=== PATIENT | female | born 1940 | race Caucasian/White ===

== ENCOUNTER 2017-08-28 19:15 | Inpatient (IN) | payer MEDICARE, MEDICAID ==
--- NOTE | 2017-08-28 21:38 | ED Physician Chart ---
ED Chief Complaint/HPI - Patient Information Date Seen:: 08/28/17 Time Seen:: 21:37 Chief Complaint:: Syncope History of Present Illness:: 76 yo female developed one episode of syncope at grocery store. She was with her daughter at that time. The daughter described the patient having clamy skin , weakness of BLE with a transient loss of consciousness. No trauma Allergies:: Allergies Allergy/AdvReac Type Severity Reaction Status Date / Time No Known Allergies Allergy Verified 08/28/17 20:57 Vitals:: Vital Signs - 8 hr 08/28/17 19:45 Temp 97.7 F HR 55 RR 18 BP 231/78 O2 Sat % 96 ED Past Medical History - Past Medical History Past Medical History: HTN, DM, Thyroid disorder, Other (anemia) Social History: Non Smoker, No Alcohol, No Drug Use Surgical History: Cholecystectomy Family Medical History - Family Member Mother History Unknown: Yes ED Septic Shock - <6hrs of presentation: Vital Signs: Vital Signs - 8 hr 08/28/17 19:45 Temp 97.7 F HR 55 RR 18 BP 231/78 O2 Sat % 96
[2017-08-28 22:25] LABS: URINE MICROSCOPIC INDICATED? YES; URINE SOURCE RANDOM
[2017-08-28 22:25] LABS: HEMATOCRIT 35.2 % (41.0-60); MEAN CELL VOLUME 86.4 fl (81-100); MEAN CORPUSCULAR HEMOGLOBIN 29.4 pg (27.0-31.0); MEAN CORPUSCULAR HGB CONC 34.1 pg (28.0-36.0); MEAN PLATELET VOLUME 10.3 fl; PLATELET COUNT 192 Th/cmm (150-400); RED BLOOD COUNT 4.07 Mil/cmm (3.80-5.20); RED CELL DISTRIBUTION WIDTH 13.3 % (11.5-20.0); WHITE BLOOD COUNT 10.6 Th/cmm (4.8-10.8)
[2017-08-28 22:30] LABS: MANUAL DIFF REQUIRED? YES
[2017-08-28 22:37] LABS: URINE BILIRUBIN NEGATIVE (NEGATIVE); URINE BLOOD TRACE (NEGATIVE); URINE GLUCOSE (UA) 250 mg/dL (NEGATIVE); URINE KETONE NEGATIVE (NEGATIVE); URINE LEUKOCYTE ESTERASE MODERATE (NEGATIVE); URINE NITRATE NEGATIVE (NEGATIVE); URINE PROTEIN >=300 mg/dL (NEGATIVE); URINE UROBILINOGEN 0.2 E.U./dL (0.2 - 1.0)
[2017-08-28 22:40] LABS: ALB/GLOB RATIO 1.3 (1.0-1.8); ALBUMIN 3.3 gm/dL (3.7-5.3); ALKALINE PHOSPHATASE 91 U/L (34-104); ANION GAP 11.6 (7.0-16.0); BILIRUBIN,TOTAL 0.9 mg/dL (0.3-1.0); BUN - UREA NITROGEN 39 mg/dL (7-25); CALCIUM SERUM 8.3 mg/dL (8.6-10.3); CARBON DIOXIDE 24.3 mEq/L (21.0-31.0); CHLORIDE 104 mEq/L (98-107); CREATININE - SERUM 1.6 mg/dL (0.6-1.2); GLUCOSE 254 mg/dL (70-105); POTASSIUM SERUM 4.9 mEq/L (3.5-5.1); SGOT 16 U/L (13-39); SGPT/ALT 15 U/L (7-52); SODIUM SERUM 135 mEq/L (136-145); TOTAL PROTEIN,SERUM 5.9 gm/dL (6.0-8.3)
[2017-08-28 22:45] LABS: URINE CLARITY HAZY (CLEAR); URINE COLOR YELLOW
[2017-08-28 22:59] LABS: URINE RBC 0-2 /hpf (0-5); URINE WBC 25-50 /hpf (0-5)
[2017-08-28 23:00] LABS: URINE BACTERIA MODERATE /hpf (NONE SEEN); URINE EPITHELIAL CELLS MANY /lpf (FEW)
[2017-08-29 01:20] LABS: BAND NEUTROPHILE 2 % (0-10); LYMPHOCYTE 8 % (20-50); NEUTROPHILS 89 % (40-80); TOTAL CELLS COUNTED 100
[2017-08-29 01:21] LABS: MONOCYTE 1 % (2-10); PLATELET ESTIMATE ADEQUATE (NORMAL)
[2017-08-29 05:46] LABS: % BASOPHILS 0.9 % (0.0-2.0); % EOSINOPHILS 2.8 % (0.0-5.0); % LYMPHOCYTES 9.8 % (20.0-50.0); % MONOCYTES 5.2 % (2.0-10.0); % NEUTROPHILS 81.3 % (40.0-80.0); BASOPHILE ABSOLUTE 0.1 Th/cumm (0-0.2); EOSINOPHILE ABSOLUTE 0.2 Th/cmm (0.1-0.4); HEMOGLOBIN 10.7 gm/dL (12-16); LYMPHOCYTE ABSOLUTE 0.6 Th/cmm (1.5-3.0); MEAN CELL VOLUME 86.2 fl (81-100); MEAN CORPUSCULAR HEMOGLOBIN 28.8 pg (27.0-31.0); MEAN CORPUSCULAR HGB CONC 33.4 pg (28.0-36.0); MEAN PLATELET VOLUME 10.3 fl; MONOCYTE ABSOLUTE 0.3 Th/cmm (0.3-1.0); PLATELET COUNT 181 Th/cmm (150-400); RED BLOOD COUNT 3.71 Mil/cmm (3.80-5.20); RED CELL DISTRIBUTION WIDTH 13.7 % (11.5-20.0)
[2017-08-29 05:48] LABS: WHITE BLOOD COUNT 6.2 Th/cmm (4.8-10.8)
[2017-08-29 06:16] LABS: BUN - UREA NITROGEN 39 mg/dL (7-25); CALCIUM SERUM 7.9 mg/dL (8.6-10.3); CARBON DIOXIDE 24.4 mEq/L (21.0-31.0); CHLORIDE 106 mEq/L (98-107); CREATININE - SERUM 1.6 mg/dL (0.6-1.2); CREATININE KINASE 26 U/L (30-223); GLUCOSE 224 mg/dL (70-105); POTASSIUM SERUM 4.4 mEq/L (3.5-5.1); SODIUM SERUM 135 mEq/L (136-145)
[2017-08-29 06:42] VITALS: BP 147/63
--- NOTE | 2017-08-29 08:19 | Diagnostic Imaging Report ---
Exam: Portable chest x-ray. HISTORY: Shortness of breath. Findings: Portable summation of chest at 2224 hours reviewed no prior studies available comparison. Bony thorax is intact. Mediastinal structures midline, the heart is enlarged. No acute pulmonic infiltrates or effusions are noted. IMPRESSION: Cardiomegaly no acute disease.
--- NOTE | 2017-08-29 09:36 | Consultation ---
DATE OF CONSULTATION: 08/29/2017 HISTORY OF PRESENT ILLNESS: The patient is a 76-year-old. The patient had a gross history of period. The patient felt kind of weak. The patient felt oozy. She felt like she was going to pass out and weak. She says she as why she knows she did not pass out. She felt weakness in the legs. She is feeling fine at the moment. PAST MEDICAL HISTORY: Diabetes, hypertension, thyroid disorder, and anemia. SOCIAL HISTORY: She does not smoke or drink. PAST SURGICAL HISTORY: Gallbladder. REVIEW OF SYSTEMS: On direct questioning, no marked headache. No neck pain. Speech okay. No chest pain, no shortness of breath. No cough, sputum, hemoptysis and no abdominal pain. MEDICATIONS: As per reconciliation. PHYSICAL EXAMINATION: VITAL SIGNS: Temperature 98.2; blood pressure initially high at 231/78, down to 180/65. Pulse is around 66. NECK: Supple. No bruits. HEART: Sounds S1, S2. LUNGS: Clear. NEUROLOGIC: Awake, alert. Speech is normal. CRANIAL: Pupils react to light. Full eye movement. No nystagmus. No facial weakness. MOTOR: She will lift both arms up. Lifts both legs up. Reflexes: About -1 upper extremities, difficult to get at the knees. Absent ankles. INVESTIGATIONS: I did not see a CT scan or such. We will go ahead and order one. LABORATORY DATA: WBC 6.2, hemoglobin 10.7, platelets normal. Sodium 135, potassium 4.4. BUN 39, creatinine 1.9. Glucose on admission was 254. TSH okay. UA: WBC is 25-50. ASSESSMENT: 1. Syncope. 2. Weakness. 3. Diabetes. 4. Possible neuropathy. 5. Urinary tract infection. 6. Hypertension. 7. Thyroid disorder. PLAN: CT scan of the head, carotid Doppler studies. JOB# [id number]
--- NOTE | 2017-08-29 10:06 | Diagnostic Imaging Report ---
Head CT without intravenous contrast Indication: Altered level of consciousness Comparison: None Technique: Axial images were obtained from the vertex to the skull base without IV contrast. Coronal reconstructions were made. Total DLP: 819, [id number] FINDINGS: Images of the brain obtained without contrast demonstrate no acute hemorrhage. No mass lesions identified. The ventricles and basal cisterns are patent. Atrophy is noted. Mild white matter disease is noted. No evidence of a skull fracture or focal soft tissue swelling. There is mild mucosal thickening in the paranasal sinuses. IMPRESSION: No evidence of acute intracranial hemorrhage. Atrophy. Mild supratentorial white matter disease which is nonspecific and may be due to chronic microvessel ischemia.
--- NOTE | 2017-08-29 12:23 | Diagnostic Imaging Report ---
Carotid ultrasound HISTORY: Syncope COMPARISON: None Technique: Longitudinal and transverse sonographic sector images of the carotid arteries were obtained with doppler analysis. FINDINGS: Exam of the right side demonstrates mild to moderate atherosclerotic vascular disease, greatest within the carotid bulb. The velocity and velocity ratios are within normal limits. Exam of the left side demonstrates mild to moderate generalized atherosclerotic vascular disease. There is mild increased velocity of the left ICA distally at 134 cm/second. Antegrade vertebral artery flow is demonstrated bilaterally. IMPRESSION: Mild to moderate generalized atherosclerotic vascular disease, right greater than left. There is mild increased velocity of the left distal ICA which may be due to technical factors and vessel tortuosity. Otherwise no hemodynamically significant focal stenosis was identified. If necessary CT angiography neck may be obtained.
[2017-08-29] MEDS: Levothyroxine 0.025 Mg Tab PO SCH (13:32)
[2017-08-29 15:43] LABS: A1C % 8.3 % (4.0-6.0)
[2017-08-29] MEDS: Ferrous Sulfate 325 MG TAB PO SCH (17:10)
--- NOTE | 2017-08-29 20:41 | Consultation ---
DATE OF CONSULTATION: 08/29/[address] Alcala. HISTORY AND PHYSICAL: This is a 76-year-old female patient who was at a grocery store when the patient had syncopal episode. The patient had no evidence of seizure activity, chest pain, palpitation prior to syncope and the patient was brought to the Emergency Room and the patient is admitted. PAST MEDICAL HISTORY: Hypertension, anemia, hypothyroid, osteoporosis, obesity. FAMILY HISTORY: Unremarkable. SOCIAL HISTORY: No history of smoking, alcohol abuse. ALLERGIES: No known allergies. PHYSICAL EXAMINATION: VITAL SIGNS: Blood pressure 184/57, pulse 78, respirations 28. HEAD: Normocephalic. No lumps or bumps. EYES: Pupils equal, reactive to light. Fundi show AV nicking, sclerae white, conjunctivae pink. NECK: Carotid 2+. Normal upstroke. JVD flat. Thyroid not palpable. Lymph nodes not palpable. CHEST: Shows increased AP diameter. No kyphosis, scoliosis. LUNGS: Bilateral bronchovesicular breath sounds. HEART: PMI fifth intercostal space with lateral to midclavicular line. S1, S2. No S3, S4. Soft systolic murmur. ABDOMEN: Soft. Liver and spleen not palpable. No organomegaly. Bowel sounds active. NEUROLOGIC: Peripheral neuropathy. EXTREMITIES: Peripheral pulses 2+. No pedal edema. CLINICAL IMPRESSION: Syncope, etiology unknown; diabetes mellitus type 2; diabetic peripheral neuropathy; hypertension, uncontrolled; congestive heart failure; diastolic dysfunction. BNP level 462. Iron-deficiency anemia, hypothyroid, osteoporosis, obesity, urinary tract infection. PLAN: The patient will get carotid duplex study. CT scan of the brain, echocardiogram. Treat urinary tract infection and congestive heart failure. JOB# [id number]
[2017-08-29] MEDS: INSULIN ASPART SLIDING SCALE 100 UNITS/ML UNIT SUBQ SCH (22:21)
[2017-08-30] MEDS: INSULIN ASPART SLIDING SCALE 100 UNITS/ML UNIT SUBQ SCH ×4 (07:35→22:11)
[2017-08-30 07:38] LABS: ANION GAP 9.5 (7.0-16.0); BUN - UREA NITROGEN 37 mg/dL (7-25); CALCIUM SERUM 7.9 mg/dL (8.6-10.3); CARBON DIOXIDE 25.6 mEq/L (21.0-31.0); CHLORIDE 105 mEq/L (98-107); CREATININE - SERUM 1.8 mg/dL (0.6-1.2); POTASSIUM SERUM 4.1 mEq/L (3.5-5.1); SODIUM SERUM 136 mEq/L (136-145)
[2017-08-30 07:48] LABS: GLUCOSE 130 mg/dL (70-105)
[2017-08-30] MEDS: Levothyroxine 0.025 Mg Tab PO SCH (08:54)
[2017-08-30] MEDS: Ferrous Sulfate 325 MG TAB PO SCH ×2 (08:55→17:32)
--- NOTE | 2017-08-30 12:14 | History & Physical ---
ADMIT DATE: 08/30/2017 CHIEF COMPLAINT: Syncopal episode. HISTORY OF PRESENT ILLNESS: This is a 76-year-old lady with history of hypertension, diabetes, anemia who was in her usual state of health until 2 days ago when she was grocery shopping with her daughter, and suddenly felt weak, clammy and her legs felt very wobbly. The patient apparently had a brief loss of consciousness and was held by her daughter and was transferred to the ER where pertinent findings include BUN and creatinine of 39/1.6. UA consistent with a UTI and a blood pressure at 231/78. She was also slightly bradycardic at 55. CT of the head was essentially within normal limits. The patient has been admitted to telemetry for further management and care. On further questioning, the patient denies any chest pain or palpitations prior to the episode. She is diabetic and she thinks it might have been because of her diabetic medications, but her glucometer readings were actually somewhat elevated, around the 200 range area. She states that about a year ago she had a similar episode, but at that time she was not hospitalized. PAST MEDICAL HISTORY: As noted above and hypothyroidism. PAST SURGICAL HISTORY: Cholecystectomy, many years ago. SOCIAL HISTORY: Denies any tobacco, ETOH or illicit drug usage. Lives at home with family. ALLERGIES: NKDA. OUTPATIENT MEDICATIONS: Lisinopril 20 b.i.d., potassium chloride 10 mEq daily, atenolol 25 b.i.d., atorvastatin 40 every day, clonidine 0.2 q. 8 hours, iron sulfate 325 b.i.d., Lasix 20 every day, glipizide 10 b.i.d., hydralazine 25 t.i.d., Synthroid 25 mcg every day, and Glucophage 1000 mg b.i.d. REVIEW OF SYSTEMS: CONSTITUTIONAL: No fever or chills, no recent weight loss. CARDIOVASCULAR: She denies any angina type symptomatology. PULMONARY: No cough, no shortness of breath, no phlegm production. GASTROINTESTINAL: Denies any abdominal pain, nausea, vomiting or diarrhea. GENITOURINARY: The patient denies any UTI symptomatology. No dysuria or hematuria. PHYSICAL EXAMINATION: VITAL SIGNS: Temperature 97.6, pulse 54, BP was 73/59 with sats of 97% on room air. GENERAL: She is a well-developed, mildly obese female, not in acute distress. She is awake, alert and oriented x 3. HEAD AND NECK: Normocephalic and atraumatic. Pupils are reactive to light. Extraocular movements are intact. Oropharynx moist and clear. CARDIAC: Regular rate and rhythm without any murmurs. LUNGS: Decreased, but clear to auscultation bilaterally. ABDOMEN: Soft, supple, nontender, nondistended, normoactive bowel sounds. LOWER EXTREMITIES: No pedal edema. LABORATORY DATA: Troponins have been negative x 4 sets. BNP level 462. Sodium 135, BUN 39, creatinine 1.6 with a glucose of 254. White count 10.6, H and H 12/35 with a platelet count of 192. UA shows moderate leukocyte esterase with 25-50 wbc's and moderate bacteria. Head CT, there is no evidence of intracranial hemorrhage. Chest x-ray shows cardiomegaly with no acute disease. ASSESSMENT: 1. Syncope. Etiologies could include TIA versus CVA. We will also have to rule out Cardiology related event such as a carotid stenosis or arrhythmia as well as IN. 2. Generalized weakness. 3. History of hypertension, out of control. 4. Bradycardia. 5. Urinary tract infection. 6. Renal insufficiency, likely chronic in nature. PLAN: The patient has been admitted to [facility] for further management and care. She will undergo cardiac and neuro workup including a 2D echo, carotid ultrasound. I will also ask for a cardiology as well as a neuro consult. The patient will be placed on aspirin and will be kept on her medications as scheduled except for the atenolol, which will be discontinued secondary to her bradycardia. The patient will be placed on hydralazine and Imdur for better BP control and she will be kept on her other medications as scheduled as noted above. Her Lasix will be discontinued given her renal insufficiency and she will be placed on Rocephin 1 gram every day for UTI. JOB# [id number] NIDA
[2017-08-30] MEDS: cefTRIAXone 1 GM in Sodium Chloride 0.9% 50 ML IV SCH (15:05)
--- NOTE | 2017-08-30 16:17 | Cardiology ---
08/29/2017 PATIENT OF: Dr. Alcala. M-MODE ECHOCARDIOGRAM: Mitral valve: Anterior leaflet of the mitral valve shows normal excursion, EF velocity. Posterior leaflet of the mitral valve shows normal excursion. Left ventricular posterior wall shows increased thickness, normal excursion. Interventricular septum shows increased thickness, normal excursion, hypertrophy of the left ventricle, ejection fraction 55%. Left atrium normal. Aortic root shows normal dimension, normal excursion of aortic leaflets. CONCLUSION: Hypertrophy of the left ventricle, ejection fraction 60%. 2D ECHO: Long axis view showed normal sized left ventricle with hypertrophy of the left ventricle. Left atrium normal. Aortic root shows normal dimension, normal excursion of aortic leaflets. Short axis view of mitral valve normal. Short axis view of aortic valve normal. Apical four-chamber view showed normal sized left ventricle, left atrium, right ventricle, right atrium, tricuspid and mitral valve. Ejection fraction 60%. CONCLUSION: Hypertrophy of the left ventricle, ejection fraction 60%. Doppler study shows mild mitral regurgitation, mild tricuspid regurgitation. JOB# [id number]
[2017-08-31 06:32] LABS: % BASOPHILS 0.5 % (0.0-2.0); % EOSINOPHILS 3.6 % (0.0-5.0); % LYMPHOCYTES 17.2 % (20.0-50.0); % MONOCYTES 6.9 % (2.0-10.0); % NEUTROPHILS 71.8 % (40.0-80.0); EOSINOPHILE ABSOLUTE 0.2 Th/cmm (0.1-0.4); HEMATOCRIT 33.3 % (41.0-60); HEMOGLOBIN 11.2 gm/dL (12-16); LYMPHOCYTE ABSOLUTE 0.9 Th/cmm (1.5-3.0); MEAN CELL VOLUME 85.5 fl (81-100); MEAN CORPUSCULAR HEMOGLOBIN 28.8 pg (27.0-31.0); MEAN CORPUSCULAR HGB CONC 33.7 pg (28.0-36.0); MEAN PLATELET VOLUME 10.1 fl; MONOCYTE ABSOLUTE 0.4 Th/cmm (0.3-1.0); PLATELET COUNT 173 Th/cmm (150-400); RED CELL DISTRIBUTION WIDTH 13.1 % (11.5-20.0); WHITE BLOOD COUNT 5.5 Th/cmm (4.8-10.8)
[2017-08-31 06:47] LABS: CHOLESTEROL 194 mg/dL (<200); HDL -HIGH DENSITY LIPOPROTEIN 41 mg/dL (23-92); TRIGLYCERIDES 234 mg/dL (<150)
[2017-08-31 06:48] LABS: ANION GAP 10.3 (7.0-16.0); BUN - UREA NITROGEN 40 mg/dL (7-25); CALCIUM SERUM 8.3 mg/dL (8.6-10.3); CARBON DIOXIDE 23.8 mEq/L (21.0-31.0); CHLORIDE 105 mEq/L (98-107); CREATININE - SERUM 1.8 mg/dL (0.6-1.2); GLUCOSE 125 mg/dL (70-105); MAGNESIUM 1.9 mg/dL (1.9-2.7); POTASSIUM SERUM 4.1 mEq/L (3.5-5.1); SODIUM SERUM 135 mEq/L (136-145)
--- NOTE | 2017-08-31 07:44 | General Progress Note ---
Subjective - Review of Systems Service Date: 08/31/17 Events since last encounter: consult dictated CT head negative doppler carotid no hemodynamic stenosis bradycardia suggest ASAS, CTA if BUN/creatinine improves Objective - Results Result Diagrams: 08/31/17 06:20 08/31/17 06:20 Recent Labs: Laboratory Last Values WBC 5.5 Th/cmm (4.8-10.8) 08/31/17 06:20 RBC 3.90 Mil/cmm (3.80-5.20) 08/31/17 06:20 Hgb 11.2 gm/dL (12-16) L 08/31/17 06:20 Hct 33.3 % (41.0-60) L 08/31/17 06:20 MCV 85.5 fl (81-100) 08/31/17 06:20 MCH 28.8 pg (27.0-31.0) 08/31/17 06:20 MCHC Differential 33.7 pg (28.0-36.0) 08/31/17 06:20 RDW 13.1 % (11.5-20.0) 08/31/17 06:20 Plt Count 173 Th/cmm (150-400) 08/31/17 06:20 MPV 10.1 fl 08/31/17 06:20 Neutrophils % 71.8 % (40.0-80.0) 08/31/17 06:20 Band Neutrophils % 2 % (0-10) 08/28/17 22:09 Lymphocytes % 17.2 % (20.0-50.0) L 08/31/17 06:20 Monocytes % 6.9 % (2.0-10.0) 08/31/17 06:20 Eosinophils % 3.6 % (0.0-5.0) 08/31/17 06:20 Basophils % 0.5 % (0.0-2.0) 08/31/17 06:20 Neutrophils (Manual) 89 % (40-80) H 08/28/17 22:09 Lymphocytes 8 % (20-50) L 08/28/17 22:09 Monocytes 1 % (2-10) L 08/28/17 22:09 Platelet Estimate ADEQUATE (NORMAL) 08/28/17 22:09 Sodium 135 mEq/L (136-145) L 08/31/17 06:20 Potassium 4.1 mEq/L (3.5-5.1) 08/31/17 06:20 Chloride 105 mEq/L (98-107) 08/31/17 06:20 Carbon Dioxide 23.8 mEq/L (21.0-31.0) 08/31/17 06:20 Anion Gap 10.3 (7.0-16.0) 08/31/17 06:20 BUN 40 mg/dL (7-25) H 08/31/17 06:20 Creatinine 1.8 mg/dL (0.6-1.2) H 08/31/17 06:20 Est GFR ( Amer) TNP 08/31/17 06:20 Est GFR (Non-Af Amer) TNP 08/31/17 06:20 BUN/Creatinine Ratio 22.2 08/31/17 06:20 Glucose 125 mg/dL (70-105) H 08/31/17 06:20 POC Glucose 121 MG/DL (70 - 105) H 08/31/17 06:12 Hemoglobin A1c % 8.3 % (4.0-6.0) H 08/28/17 22:09 Calcium 8.3 mg/dL (8.6-10.3) L 08/31/17 06:20 Magnesium 1.9 mg/dL (1.9-2.7) 08/31/17 06:20 Total Bilirubin 0.9 mg/dL (0.3-1.0) 08/28/17 22:09 AST 16 U/L (13-39) 08/28/17 22:09 ALT 15 U/L (7-52) 08/28/17 22:09 Alkaline Phosphatase 91 U/L (34-104) 08/28/17 22:09 Creatine Kinase 27 U/L (30-223) L 08/29/17 22:25 Troponin I 0.02 ng/mL (0.01-0.05) 08/29/17 22:25 B-Natriuretic Peptide 319.0 pg/mL (5.0-100.0) H 08/30/17 04:50 Total Protein 5.9 gm/dL (6.0-8.3) L 08/28/17 22:09 Albumin 3.3 gm/dL (3.7-5.3) L 08/28/17 22:09 Globulin 2.6 gm/dL 08/28/17 22:09 Albumin/Globulin Ratio 1.3 (1.0-1.8) 08/28/17 22:09 Triglycerides 234 mg/dL (<150) H 08/31/17 06:20 Cholesterol 194 mg/dL (<200) 08/31/17 06:20 LDL Cholesterol Direct 115 mg/dL (75-193) 08/31/17 06:20 HDL Cholesterol 41 mg/dL (23-92) 08/31/17 06:20 TSH 4.49 uIU/ml (0.34-5.60) 08/28/17 22:09 Urine Source RANDOM 08/28/17 21:40 Urine Color YELLOW 08/28/17 21:40 Urine Clarity HAZY (CLEAR) 08/28/17 21:40 Urine pH 6.0 (4.6 - 8.0) 08/28/17 21:40 Ur Specific Stryker 1.020 (1.005-1.030) 08/28/17 21:40 Urine Protein >=300 mg/dL (NEGATIVE) 08/28/17 21:40 Urine Glucose (UA) 250 mg/dL (NEGATIVE) H 08/28/17 21:40 Urine Ketones NEGATIVE mg/dL (NEGATIVE) 08/28/17 21:40 Urine Blood TRACE (NEGATIVE) 08/28/17 21:40 Urine Nitrate NEGATIVE (NEGATIVE) 08/28/17 21:40 Urine Bilirubin NEGATIVE (NEGATIVE) 08/28/17 21:40 Urine Urobilinogen 0.2 E.U./dL (0.2 - 1.0) 08/28/17 21:40 Ur Leukocyte Esterase MODERATE (NEGATIVE) H 08/28/17 21:40 Urine RBC 0-2 /hpf (0-5) 08/28/17 21:40 Urine WBC 25-50 /hpf (0-5) H 08/28/17 21:40 Ur Epithelial Cells MANY /lpf (FEW) 08/28/17 21:40 Urine Bacteria MODERATE /hpf (NONE SEEN) H 08/28/17 21:40 - Physical Exam Vitals and I&O: Vital Signs Temp 98 F 08/31/17 04:00 Pulse 72 08/31/17 04:00 Resp 18 08/31/17 04:00 BP 128/65 08/31/17 04:00 Pulse Ox 96 08/31/17 04:00 Intake & Output 08/30/17 08/31/17 08/31/17 18:59 06:59 18:59 Intake Total 50 50 Balance 50 50 Weight (lbs) 81.919 kg Intake: Intake, IV Amount 50 [id number] 1 gm In 50 Sodium Chloride 0.9% 50 ml @ 100 mls/hr IV Q24HR [facility] Rx#:[id number] Oral 50 Other: # Voids 1 Stool Characteristics Soft Active Medications: Current Medications Acetaminophen (Tylenol) 650 mg PO Q4H PRN PRN Reason: Pain or Fever >101 Stop: 10/27/17 23:14 Amlodipine Besylate (Norvasc) 10 mg PO DAILY [facility] Stop: 10/30/17 08:59 Atorvastatin Calcium (Lipitor) 40 mg PO DAILY [facility] Stop: 10/28/17 13:59 Last Admin: 08/30/17 08:55 Dose: 40 mg Ferrous Sulfate (Iron) 325 mg PO BID YASHIRA Stop: 10/28/17 16:59 Last Admin: 08/30/17 17:32 Dose: 325 mg Furosemide (Lasix) 40 mg IVP DAILY YASHIRA Stop: 10/29/17 08:59 Last Admin: 08/30/17 08:57 Dose: 40 mg Glipizide (Glucotrol) 10 mg PO BID [facility] Stop: 10/28/17 16:59 Last Admin: 08/30/17 17:32 Dose: Not Given Hydralazine HCl (Apresoline) 50 mg PO QID [facility] Stop: 10/29/17 13:44 Last Admin: 08/30/17 17:36 Dose: 50 mg Ceftriaxone Sodium 1 gm/ (Sodium Chloride) 50 mls @ 100 mls/hr IV Q24HR YASHIAR Stop: 10/29/17 10:29 Last Infusion: 08/30/17 15:50 Dose: Infused Insulin Aspart (Novolog Insulin Sliding Scale) 0 units SUBQ ACHS YASHIRA PRN Reason: Protocol Stop: 10/28/17 20:59 Last Admin: 08/30/17 22:11 Dose: Not Given Levothyroxine Sodium (Synthroid) 0.025 mg PO QDAC YASHIRA Stop: 10/28/17 13:59 Last Admin: 08/30/17 08:54 Dose: 0.025 mg Losartan Potassium (Cozaar) 100 mg PO DAILY [facility] Stop: 10/30/17 08:59 Miscellaneous (Clinical Monitoring) 1 ea MC DAILY PRN PRN Reason: RENAL- METFORMIN Stop: 10/28/17 15:03 Pneumococcal Polyvalent Vaccine (Pneumovax) 0.5 ml IM .ONCE ONE Stop: 08/31/17 09:01 Nutritional Asmnt/Malnutr-PDOC - Dietary Evaluation Malnutrition Findings (Please click <Entered> for more info): Nutritional Asmnt/Malnutrition Start: 08/29/17 16: 58 Text: Status: Complete Freq: Document 08/29/17 17:19 LCHENG (Rec: 08/29/17 17:28 LCHENG [email or web address]) Nutritional Asmnt/Malnutrition Patient General Information Nutritional Screening High Risk Consult Diagnosis syncope, uncontroleed HTN Pertinent Medical Hx/Surgical Hx HTN, DM, thyroid disorder, anemia, cholestectomy Subjective Information Consult received for DM. Pt seen lying in bed, awake and alert during the time of visit . Pt reported good appetite, food tatsed good. She followed diebetic diet and monitor blood sugar at home. Per notes , PO intake 100% of breakfast and lunch today. Current Diet Order/ Nutrition Support low sodium 2gm Pertinent Medications Iron, lasix, glucotrol, synthroid, glucophage Pertinent Labs 1/3 Na 135, K 4.4, cl 106, BUN 39, Cr 1.6, Glucose 224 1/2 A1c 8.3, Ca 7.9 Nutritional Hx/Data Height 1.63 m Height (Calculated Centimeters) 162.6 Current Weight (lbs) 78.653 kg Weight (Calculated Kilograms) 78.7 Weight (Calculated Grams) 94643.9 Kunkle Body Weight 120 % Kunkle Body Weight 145 Body Mass Index (BMI) 29.7 Weight Status Overweight GI Symptoms GI Symptoms None Last BM no record Difficult in: None Usual diet at home pt was following diabetic diet at home Skin Integrity/Comment: intact Estimated Nutritional Goals BEE in Kcals: Adj wt of IBW Calories/Kcals/Kg 25-30 Kcals Calculated [id number] based on adj wt 61 Protein: Adj wt of IBW Protein g/k-1.2 Protein Calculated 61-73 Fluid: ml 1525-1830ml (1ml/kcal) Nutritional Problem 1. Problem Problem altered nutrition realted lab values Etiology hx of Dm Signs/Symptoms: Glucose 224, A1c 8.3 Malnutrition Alert Protein-Calorie Malnutrition N/A Is there a minimum of two criteria No selected? Query Text:Check all the applicable criteria. A minimum of two criteria are recommended for diagnosis of either severe or non-severe malnutrition. Intervention/Recommendation Comments 1. [facility] diet for optimal glycemic control. RN made aware and will update diet order. 2. Monitor PO intake, wt, labs and skin integrity 3. F/U as moderate risk in 3-5 days, 09/01-09/03 Expected Outcomes/Goals Expected Outcomes/Goals 1. PO intake to meet at least 75% of nutritional needs. 2. Wt stability, skin to remain intact, labs to improve .
[2017-08-31] MEDS: Levothyroxine 0.025 Mg Tab PO SCH (07:54)
--- NOTE | 2017-08-31 08:06 | Consultation ---
DATE OF CONSULTATION: 08/31/2017 VASCULAR CONSULTATION REFERRING PHYSICIAN: Dr. Alcala. REASON FOR CONSULTATION: Loss of consciousness. Thank you for referring this patient to me. HISTORY OF PRESENT ILLNESS: This is a 76-year-old female who apparently briefly lost consciousness, became weak, and was admitted to the hospital via Emergency Room. The patient has diabetes and claims that this is low blood sugars, likely the reason for it. Her blood sugar was not low; however, but the blood pressure was high at 231/78. She was found to be slightly bradycardic at 55. She denies previous history of syncopal episode, TIA, or stroke. The laboratory studies include a blood sugar on admission at 130, BUN is 37 with creatinine of 1.8. CBC was normal. The patient underwent a carotid study and this shows no hemodynamic significant stenosis. CT of the head did not show any acute infarct. The patient has been seen by Dr. Shaikh, Neurology and Dr. Brenda Fountain, Cardiology. PHYSICAL EXAMINATION: NEUROLOGY: The patient appears to be well oriented. There is minimal carotid bruit bilateral. The patient moves all extremities. No evidence of weakness. IMPRESSION: 1. Transient ischemic attack ? 2. No hemodynamic carotid stenosis. 3. Bradycardia. RECOMMENDATIONS: In view of the elevated BUN and creatinine, the patient should be observed with a followup of these measurements and if episode repeats itself. A CT angiogram should be done. There are other etiologies that needs to be considered including bradycardia and a low blood sugar. Thank you for this consultation. We will follow with you. JOB# [id number]
[2017-08-31] MEDS: INSULIN ASPART SLIDING SCALE 100 UNITS/ML UNIT SUBQ SCH ×4 (08:08→21:11)
[2017-08-31] MEDS: Ferrous Sulfate 325 MG TAB PO SCH ×2 (08:33→17:03)
[2017-08-31] MEDS ORDERED: Pneumococcal Vaccine 0.5 mL Vial IM ONE (09:00)
--- NOTE | 2017-08-31 09:14 | Diagnostic Imaging Report ---
Portable chest x-ray HISTORY: Shortness of breath The heart is enlarged. Atherosclerotic calcification seen in the aorta. No acute focal pulmonary processes. IMPRESSION: 1. Cardiomegaly with atherosclerotic vascular changes 2. No acute abnormalities
[2017-08-31] MEDS: cefTRIAXone 1 GM in Sodium Chloride 0.9% 50 ML IV SCH (10:26)
[2017-08-31] MEDS ORDERED: Probiotic Screen MC PRN (15:57)
[2017-09-01] MEDS: INSULIN ASPART SLIDING SCALE 100 UNITS/ML UNIT SUBQ SCH ×5 (06:44→21:44)
[2017-09-01] MEDS: Levothyroxine 0.025 Mg Tab PO SCH (06:45)
[2017-09-01 07:29] LABS: % EOSINOPHILS 1.7 % (0.0-5.0); % LYMPHOCYTES 10.8 % (20.0-50.0); % NEUTROPHILS 82.5 % (40.0-80.0); EOSINOPHILE ABSOLUTE 0.1 Th/cmm (0.1-0.4); HEMATOCRIT 34.1 % (41.0-60); HEMOGLOBIN 11.4 gm/dL (12-16); LYMPHOCYTE ABSOLUTE 0.9 Th/cmm (1.5-3.0); MEAN CELL VOLUME 86.5 fl (81-100); MEAN CORPUSCULAR HEMOGLOBIN 28.8 pg (27.0-31.0); MEAN CORPUSCULAR HGB CONC 33.3 pg (28.0-36.0); MONOCYTE ABSOLUTE 0.4 Th/cmm (0.3-1.0); NEUTROPHILE ABSOLUTE 6.9 Th/cmm (1.8-8.0); PLATELET COUNT 165 Th/cmm (150-400); RED BLOOD COUNT 3.95 Mil/cmm (3.80-5.20); RED CELL DISTRIBUTION WIDTH 13.4 % (11.5-20.0)
[2017-09-01 07:54] LABS: ANION GAP 13.4 (7.0-16.0); BUN - UREA NITROGEN 38 mg/dL (7-25); CALCIUM SERUM 8.5 mg/dL (8.6-10.3); CARBON DIOXIDE 23.4 mEq/L (21.0-31.0); CHLORIDE 105 mEq/L (98-107); GLUCOSE 143 mg/dL (70-105); POTASSIUM SERUM 3.8 mEq/L (3.5-5.1); SODIUM SERUM 138 mEq/L (136-145)
[2017-09-01 08:08] LABS: WHITE BLOOD COUNT 8.3 Th/cmm (4.8-10.8)
[2017-09-01] MEDS: Lactobacillus Rhamnosus GG 15 Billion CFU CAP.SPRINK PO SCH (09:07)
[2017-09-01] MEDS: Ferrous Sulfate 325 MG TAB PO SCH ×2 (09:10→17:19)
[2017-09-01] MEDS: cefTRIAXone 1 GM in Sodium Chloride 0.9% 50 ML IV SCH (10:30)
--- NOTE | 2017-09-01 23:50 | Progress Notes ---
DATE: 09/01/2017 SUBJECTIVE: The patient is lying in bed, awake. She does feel better. Still kind of weak, but not as much. The patient talking better. Got up. She says she feels stronger a little bit. Dizziness less. OBJECTIVE: VITAL SIGNS: Temperature 98.4; blood pressure is better now, 147/72; pulse is 90. NECK: Supple. No neck bruits. CARDIAC: Heart sounds S1 and S2. NEUROLOGICAL: The patient is awake. She will answer questions. EXTREMITIES: Upper extremity normal 4+, lower extremity 4+. INVESTIGATIONS: CT scan of the head. Really no acute process. May be old stroke. Carotid Doppler: No significant stenosis. ASSESSMENT: 1. Syncope. 2. Weakness getting better. 3. Diabetes. 4. Neuropathy. 5. Urinary tract infection. 6. Hypertension. 7. Thyroid disorder. PLAN: Continue present treatment. Continue ambulation and physical therapy. JOB# [id number]
[2017-09-02 06:12] LABS: % EOSINOPHILS 1.7 % (0.0-5.0); % LYMPHOCYTES 13.7 % (20.0-50.0); % MONOCYTES 10.8 % (2.0-10.0); % NEUTROPHILS 73.8 % (40.0-80.0); EOSINOPHILE ABSOLUTE 0.1 Th/cmm (0.1-0.4); HEMATOCRIT 31.1 % (41.0-60); HEMOGLOBIN 10.6 gm/dL (12-16); LYMPHOCYTE ABSOLUTE 0.7 Th/cmm (1.5-3.0); MEAN CELL VOLUME 86.2 fl (81-100); MEAN CORPUSCULAR HEMOGLOBIN 29.3 pg (27.0-31.0); MEAN CORPUSCULAR HGB CONC 33.9 pg (28.0-36.0); MEAN PLATELET VOLUME 10.5 fl; MONOCYTE ABSOLUTE 0.5 Th/cmm (0.3-1.0); NEUTROPHILE ABSOLUTE 3.7 Th/cmm (1.8-8.0); PLATELET COUNT 163 Th/cmm (150-400); RED BLOOD COUNT 3.61 Mil/cmm (3.80-5.20); RED CELL DISTRIBUTION WIDTH 13.4 % (11.5-20.0)
[2017-09-02] MEDS: Levothyroxine 0.025 Mg Tab PO SCH (06:45)
[2017-09-02 06:50] LABS: ANION GAP 12.2 (7.0-16.0); BUN - UREA NITROGEN 35 mg/dL (7-25); CALCIUM SERUM 8.2 mg/dL (8.6-10.3); CARBON DIOXIDE 24.7 mEq/L (21.0-31.0); CHLORIDE 103 mEq/L (98-107); GLUCOSE 94 mg/dL (70-105); MAGNESIUM 2.1 mg/dL (1.9-2.7); POTASSIUM SERUM 3.9 mEq/L (3.5-5.1); SODIUM SERUM 136 mEq/L (136-145)
[2017-09-02] MEDS: Ferrous Sulfate 325 MG TAB PO SCH (08:53)
[2017-09-02] MEDS: Lactobacillus Rhamnosus GG 15 Billion CFU CAP.SPRINK PO SCH (08:54)
[2017-09-02] MEDS: INSULIN ASPART SLIDING SCALE 100 UNITS/ML UNIT SUBQ SCH ×2 (08:55→12:47)
--- NOTE | 2017-09-02 09:54 | General Progress Note ---
Subjective - Review of Systems Service Date: 09/02/17 Events since last encounter: alert, oriented need to check carotid doppler q 6 months for progression of stenosis Objective - Results Result Diagrams: 09/02/17 04:50 09/02/17 04:50 Recent Labs: Laboratory Last Values WBC 5.0 Th/cmm (4.8-10.8) D 09/02/17 04:50 RBC 3.61 Mil/cmm (3.80-5.20) L 09/02/17 04:50 Hgb 10.6 gm/dL (12-16) L 09/02/17 04:50 Hct 31.1 % (41.0-60) L 09/02/17 04:50 MCV 86.2 fl (81-100) 09/02/17 04:50 MCH 29.3 pg (27.0-31.0) 09/02/17 04:50 MCHC Differential 33.9 pg (28.0-36.0) 09/02/17 04:50 RDW 13.4 % (11.5-20.0) 09/02/17 04:50 Plt Count 163 Th/cmm (150-400) 09/02/17 04:50 MPV 10.5 fl 09/02/17 04:50 Neutrophils % 73.8 % (40.0-80.0) 09/02/17 04:50 Band Neutrophils % 2 % (0-10) 08/28/17 22:09 Lymphocytes % 13.7 % (20.0-50.0) L 09/02/17 04:50 Monocytes % 10.8 % (2.0-10.0) H 09/02/17 04:50 Eosinophils % 1.7 % (0.0-5.0) 09/02/17 04:50 Basophils % 0.0 % (0.0-2.0) 09/02/17 04:50 Neutrophils (Manual) 89 % (40-80) H 08/28/17 22:09 Lymphocytes 8 % (20-50) L 08/28/17 22:09 Monocytes 1 % (2-10) L 08/28/17 22:09 Platelet Estimate ADEQUATE (NORMAL) 08/28/17 22:09 Sodium 136 mEq/L (136-145) 09/02/17 04:50 Potassium 3.9 mEq/L (3.5-5.1) 09/02/17 04:50 Chloride 103 mEq/L (98-107) 09/02/17 04:50 Carbon Dioxide 24.7 mEq/L (21.0-31.0) 09/02/17 04:50 Anion Gap 12.2 (7.0-16.0) 09/02/17 04:50 BUN 35 mg/dL (7-25) H 09/02/17 04:50 Creatinine 2.0 mg/dL (0.6-1.2) H 09/02/17 04:50 Est GFR ( Amer) TNP 09/02/17 04:50 Est GFR (Non-Af Amer) TNP 09/02/17 04:50 BUN/Creatinine Ratio 17.5 09/02/17 04:50 Glucose 94 mg/dL (70-105) 09/02/17 04:50 POC Glucose 81 MG/DL (70 - 105) 09/02/17 06:46 Hemoglobin A1c % 8.3 % (4.0-6.0) H 08/28/17 22:09 Calcium 8.2 mg/dL (8.6-10.3) L 09/02/17 04:50 Magnesium 2.1 mg/dL (1.9-2.7) 09/02/17 04:50 Total Bilirubin 0.9 mg/dL (0.3-1.0) 08/28/17 22:09 AST 16 U/L (13-39) 08/28/17 22:09 ALT 15 U/L (7-52) 08/28/17 22:09 Alkaline Phosphatase 91 U/L (34-104) 08/28/17 22:09 Creatine Kinase 27 U/L (30-223) L 08/29/17 22:25 Troponin I 0.02 ng/mL (0.01-0.05) 08/29/17 22:25 B-Natriuretic Peptide 196.0 pg/mL (5.0-100.0) H 08/31/17 06:20 Total Protein 5.9 gm/dL (6.0-8.3) L 08/28/17 22:09 Albumin 3.3 gm/dL (3.7-5.3) L 08/28/17 22:09 Globulin 2.6 gm/dL 08/28/17 22:09 Albumin/Globulin Ratio 1.3 (1.0-1.8) 08/28/17 22:09 Triglycerides 234 mg/dL (<150) H 08/31/17 06:20 Cholesterol 194 mg/dL (<200) 08/31/17 06:20 LDL Cholesterol Direct 115 mg/dL (75-193) 08/31/17 06:20 HDL Cholesterol 41 mg/dL (23-92) 08/31/17 06:20 TSH 4.44 uIU/ml (0.34-5.60) 08/31/17 06:20 Urine Source RANDOM 08/28/17 21:40 Urine Color YELLOW 08/28/17 21:40 Urine Clarity HAZY (CLEAR) 08/28/17 21:40 Urine pH 6.0 (4.6 - 8.0) 08/28/17 21:40 Ur Specific [place] 1.020 (1.005-1.030) 08/28/17 21:40 Urine Protein >=300 mg/dL (NEGATIVE) 08/28/17 21:40 Urine Glucose (UA) 250 mg/dL (NEGATIVE) H 08/28/17 21:40 Urine Ketones NEGATIVE mg/dL (NEGATIVE) 08/28/17 21:40 Urine Blood TRACE (NEGATIVE) 08/28/17 21:40 Urine Nitrate NEGATIVE (NEGATIVE) 08/28/17 21:40 Urine Bilirubin NEGATIVE (NEGATIVE) 08/28/17 21:40 Urine Urobilinogen 0.2 E.U./dL (0.2 - 1.0) 08/28/17 21:40 Ur Leukocyte Esterase MODERATE (NEGATIVE) H 08/28/17 21:40 Urine RBC 0-2 /hpf (0-5) 08/28/17 21:40 Urine WBC 25-50 /hpf (0-5) H 08/28/17 21:40 Ur Epithelial Cells MANY /lpf (FEW) 08/28/17 21:40 Urine Bacteria MODERATE /hpf (NONE SEEN) H 08/28/17 21:40 - Physical Exam Vitals and I&O: Vital Signs Temp 99.3 F 09/02/17 04:00 Pulse 99 09/02/17 08:54 Resp 18 09/02/17 04:00 BP 136/78 09/02/17 08:54 Pulse Ox 93 09/02/17 04:00 Intake & Output 09/01/17 09/02/17 09/02/17 18:59 06:59 18:59 Intake Total 50 Balance 50 Weight (lbs) 81.193 kg Intake: Intake, IV Amount 50 cefTRIAXone 1 gm In 50 Sodium Chloride 0.9% 50 ml @ 100 mls/hr IV Q24HR [facility] Rx#:[id number] Active Medications: Current Medications Acetaminophen (Tylenol) 650 mg PO Q4H PRN PRN Reason: Pain or Fever >101 Stop: 10/27/17 23:14 Amlodipine Besylate (Norvasc) 10 mg PO DAILY [facility] Stop: 10/30/17 08:59 Last Admin: 09/02/17 08:54 Dose: 10 mg Aspirin (Ecotrin) 81 mg PO DAILY [facility] Stop: 10/30/17 10:44 Last Admin: 09/02/17 08:55 Dose: 81 mg Atorvastatin Calcium (Lipitor) 40 mg PO DAILY [facility] Stop: 10/28/17 13:59 Last Admin: 09/02/17 08:54 Dose: 40 mg Benzocaine/Menthol (Cepacol) 1 rosa MM Q4HR PRN PRN Reason: Sore Throat Stop: 10/31/17 11:55 Last Admin: 09/02/17 06:57 Dose: 1 rosa Bisacodyl (Dulcolax 5 Mg Ec Tab) 5 mg PO DAILY PRN PRN Reason: Constipation Stop: 10/31/17 11:53 Clopidogrel Bisulfate (Plavix) 75 mg PO DAILY [facility] Stop: 10/30/17 10:44 Last Admin: 09/02/17 08:54 Dose: 75 mg Ferrous Sulfate (Iron) 325 mg PO BID [facility] Stop: 10/28/17 16:59 Last Admin: 09/02/17 08:53 Dose: 325 mg Glipizide (Glucotrol) 10 mg PO BID [facility] Stop: 10/28/17 16:59 Last Admin: 09/02/17 08:53 Dose: 10 mg Hydralazine HCl (Apresoline) 50 mg PO QID [facility] Stop: 10/29/17 13:44 Last Admin: 09/02/17 08:53 Dose: 50 mg Ceftriaxone Sodium 1 gm/ (Sodium Chloride) 50 mls @ 100 mls/hr IV Q24HR [facility] Stop: 10/29/17 10:29 Last Infusion: 09/01/17 12:40 Dose: Infused Insulin Aspart (Novolog Insulin Sliding Scale) 0 units SUBQ ACHS YASHIRA PRN Reason: Protocol Stop: 10/28/17 20:59 Last Admin: 09/02/17 08:55 Dose: Not Given Isosorbide Mononitrate (Imdur) 30 mg PO DAILY [facility] Stop: 10/30/17 10:44 Last Admin: 09/02/17 08:54 Dose: 30 mg Lactobacillus Rhamnosus (Culturelle 15b) 1 each PO DAILY [facility] Stop: 10/31/17 08:59 Last Admin: 09/02/17 08:54 Dose: 1 each Levothyroxine Sodium (Synthroid) 0.025 mg PO QDAC [facility] Stop: 10/28/17 13:59 Last Admin: 09/02/17 06:45 Dose: 0.025 mg Losartan Potassium (Cozaar) 100 mg PO DAILY [facility] Stop: 10/30/17 08:59 Last Admin: 09/02/17 08:53 Dose: 100 mg Miscellaneous (Clinical Monitoring) 1 ea MC DAILY PRN PRN Reason: RENAL- METFORMIN Stop: 10/28/17 15:03 Miscellaneous (Probiotic Screen) 1 ea PRN PRN PRN Reason: PROTOCOL Stop: 10/30/17 15:56 Pioglitazone HCl (Actos) 30 mg PO DAILY [facility] Stop: 10/31/17 11:59 Last Admin: 09/02/17 08:55 Dose: 30 mg Nutritional Asmnt/Malnutr-PDOC - Dietary Evaluation Malnutrition Findings (Please click <Entered> for more info): Nutritional Asmnt/Malnutrition Start: 08/29/17 16: 58 Text: Status: Complete Freq: Document 08/29/17 17:19 LCHENG (Rec: 08/29/17 17:28 LCHENG [id number]) Nutritional Asmnt/Malnutrition Patient General Information Nutritional Screening High Risk Consult Diagnosis syncope, uncontroleed HTN Pertinent Medical Hx/Surgical Hx HTN, DM, thyroid disorder, anemia, cholestectomy Subjective Information Consult received for DM. Pt seen lying in bed, awake and alert during the time of visit . Pt reported good appetite, food tatsed good. She followed diebetic diet and monitor blood sugar at home. Per notes , PO intake 100% of breakfast and lunch today. Current Diet Order/ Nutrition Support low sodium 2gm Pertinent Medications Iron, lasix, glucotrol, synthroid, glucophage Pertinent Labs 1/3 Na 135, K 4.4, cl 106, BUN 39, Cr 1.6, Glucose 224 1/2 A1c 8.3, Ca 7.9 Nutritional Hx/Data Height 1.63 m Height (Calculated Centimeters) 162.6 Current Weight (lbs) 78.653 kg Weight (Calculated Kilograms) 78.7 Weight (Calculated Grams) 51302.9 [place] Body Weight 120 % [place] Body Weight 145 Body Mass Index (BMI) 29.7 Weight Status Overweight GI Symptoms GI Symptoms None Last BM no record Difficult in: None Usual diet at home pt was following diabetic diet at home Skin Integrity/Comment: intact Estimated Nutritional Goals BEE in Kcals: Adj wt of IBW Calories/Kcals/Kg 25-30 Kcals Calculated [id number] based on adj wt 61 Protein: Adj wt of IBW Protein g/k-1.2 Protein Calculated 61-73 Fluid: ml 1525-1830ml (1ml/kcal) Nutritional Problem 1. Problem Problem altered nutrition realted lab values Etiology hx of Dm Signs/Symptoms: Glucose 224, A1c 8.3 Malnutrition Alert Protein-Calorie Malnutrition N/A Is there a minimum of two criteria No selected? Query Text:Check all the applicable criteria. A minimum of two criteria are recommended for diagnosis of either severe or non-severe malnutrition. Intervention/Recommendation Comments 1. Recommend [facility] low sodium diet for optimal glycemic control. RN made aware and will update diet order. 2. Monitor PO intake, wt, labs and skin integrity 3. F/U as moderate risk in 3-5 days, 09/01-09/03 Expected Outcomes/Goals Expected Outcomes/Goals 1. PO intake to meet at least 75% of nutritional needs. 2. Wt stability, skin to remain intact, labs to improve .
[2017-09-02] MEDS: cefTRIAXone 1 GM in Sodium Chloride 0.9% 50 ML IV SCH (10:54)
--- NOTE | 2017-09-02 15:27 | Discharge Summary ---
DATE OF DISCHARGE: 09/02/2017 ADMITTING DIAGNOSES: 1. Syncope. 2. Hypertension, out of control. 3. Bradycardia. 4. Urinary tract infection. SECONDARY DIAGNOSES: Include history of essential hypertension, type 2 diabetes, hypothyroidism, and likely chronic renal insufficiency. DISCHARGE DIAGNOSES: Syncopal episode, resolved; hypertension, out of control, improved; bradycardia, resolved; carotid stenosis; and urinary tract infection. CONSULTANTS: Dr. Shaikh, Neurology; Dr. Edwardo Fountain, Cardiology; and Dr. Peguero general surgery. MAJOR PROCEDURES: Carotid ultrasound done on 08/29/2017 shows [id number] generalized atherosclerotic vascular disease, right greater than left. There is some mild increased velocity of the left distal ICA which may be due to technical factors that show tortuosity. Otherwise, no hemodynamically significant focal stenosis was identified. Head CT done on the shows no evidence of acute intracranial hemorrhage. A 2D echo done on the ; hypertrophy of the left ventricle with an EF of 60%. Doppler study shows mild mitral regurgitation, mild tricuspid regurgitation. DISCHARGE MEDICATIONS: Amlodipine 10 daily, aspirin 81 daily, atorvastatin 40 every day, clonidine 0.1 b.i.d., Plavix 75 every day, iron sulfate 325 b.i.d., glipizide 10 b.i.d., hydralazine 50 q.i.d., Imdur 30 every day, levothyroxine 0.25 every day, losartan 100 every day, and Actos 30 daily. BRIEF HOSPITAL COURSE: The patient is a 76-year-old lady with history of hypertension, diabetes who was in her usual state of health until the day she came into the ER when she had a syncopal fall while grocery shopping with her daughter. The patient suddenly felt weak, clammy and her legs felt very wobbly. She also stated she had a brief loss of consciousness, but with the help of her daughter she regained consciousness and she came into the ER where she was noted to have a heart rate of 55, blood pressure of 231/78 and UA consistent with UTI. The patient also had CT of the head done (please see above), was admitted to the telemetry moore for further management and treatment. The patient underwent Neurology and Cardiology workup and was seen by the above-mentioned consultants. Her carotid ultrasound did show some stenosis; therefore, a General Surgery eval was asked for. The patient remained stable throughout her hospital stay with improvement in her blood pressure and bradycardia. Her bradycardia improved after she was taken off the atenolol and Hydralazine was increased and Imdur was started with improvement of her BP. Given her renal insufficiency, her metformin and lisinopril were discontinued. Plavix was added to her regimen given her carotid us results. CONDITION ON DISCHARGE: Stable. DISPOSITION: The patient was discharged home to self-care. She is to follow up with her primary care doctor within 2-3 days. I instructed her to get a repeat carotid US in 6 months to eval the stenosis. JOB# [id number] NIDA
== END 2017-09-02 13:50 | disposition home or self-care (01) | DRG 689 ==
LOC: ER 19:15 → TELE 23:30
PROVIDERS: ADMIT Internal Medicine; ATTEND Internal Medicine
DX: N39.0 Urinary tract infection, site not specified (principal); I50.21 Acute systolic (congestive) heart failure; E11.42 Type 2 diabetes mellitus with diabetic polyneuropathy; I65.23 Occlusion and stenosis of bilateral carotid arteries; R00.1 Bradycardia, unspecified; I11.0 Hypertensive heart disease with heart failure; I95.1 Orthostatic hypotension; E07.9 Disorder of thyroid, unspecified; E03.9 Hypothyroidism, unspecified; M81.0 Age-related osteoporosis without current pathological fracture; E66.9 Obesity, unspecified; D50.9 Iron deficiency anemia, unspecified; N28.9 Disorder of kidney and ureter, unspecified; W18.30XA Fall on same level, unspecified, initial encounter; Y93.89 Activity, other specified; Y92.89 Other specified places as the place of occurrence of the external cause; Y99.8 Other external cause status; Z68.30 Body mass index [BMI] 30.0-30.9, adult; Z90.49 Acquired absence of other specified parts of digestive tract
CPT/HCPCS: 36415-UA; 70450-TC; 71010-TC; 80048-TC; 80053-TC; 80061-TC; 81001-TC; 82550-TC; 82948-90; 83036-90; 83735-TC; 83880-TC; 84443-TC; 84484-TC; 85007-TC; 85025-TC; 85027-TC; 87086-90; 93005; 93307-TC; 93880-TC; 96374; J0360; J0696; J1815; J1940; J7040; Z7610